=== PATIENT | female | born 1980 | race Caucasian/White ===

== ENCOUNTER → 2024-01-15 11:26 | Outpatient (REF) | payer OTHER, SELFPAY ==
[2024-01-15 12:34] LABS: % Basophils 0.3 % (0-2); % Eosinophils 3.1 % (0-6); % Immature Granulocytes 0.3 % (0-0.5); % Monocytes 4.9 % (1.7-9.3); % Neutrophils 63.4 % (42.2-75.2); Absolute Eosinophils 0.2 10^3/uL (0-0.7); Absolute Lymphocytes 1.9 10^3/uL (1.2-3.4); Absolute Monocytes 0.3 10^3/uL (0.1-0.6); Absolute Neutrophils 4.3 10^3/uL (1.4-6.5); Hematocrit 41.7 % (37.0-47.0); Hemoglobin 13.5 g/dL (12.0-16.0); Mean Corp Hgb Conc. 32.4 g/dL (33.0-37.0); Mean Corpuscular Hgb 29.6 pg (27.0-31.0); Mean Corpuscular Volume 91.4 fL (81.0-99.0); Mean Platelet Volume 10.1 fL (7.4-10.4); Nucleated Red Blood Cells % 0 %; Platelet Count 209 10^3/uL (130-400); Red Blood Cell Count 4.56 10^6/uL (4.20-5.40); Red Cell Dist. Width 13.2 % (11.5-14.5); White Blood Cell Count 6.7 10^3/uL (4.8-10.8)
[2024-01-15 12:59] LABS: ALT (SGPT) 19 U/L (0-35); AST (SGOT) 19 U/L (14-36); Alkaline Phosphatase 62 U/L (38-126); Blood Urea Nitrogen 16 mg/dl (7-17); Calcium 9.2 mg/dl (8.4-10.2); Carbon Dioxide 26 mmol/L (22-30); Chloride 106 mmol/L (98-107); Glucose 69 mg/dl (70-99); Potassium 4.3 mmol/L (3.5-5.1); Sodium 143 mmol/L (135-145); Total Bilirubin 1.2 mg/dl (0.2-1.3); Total Protein 6.7 g/dl (6.3-8.2); eGFR > 60.00
[2024-01-15 13:02] LABS: D-Dimer 0.52 ug/mlFEU (0.00-0.50)
== END ==
LOC: RAD 11:26
PROVIDERS: ATTENDING PHYSICIAN Family Medicine
DX: R06.02 Shortness of breath (principal); R00.2 Palpitations
CPT/HCPCS: 36415; 71046; 80053; 85025; 85379

== ENCOUNTER 2024-01-15 14:46 | Emergency (ER) | payer OTHER, SELFPAY ==
[2024-01-15 14:49] VITALS: BP 131/68
--- NOTE | 2024-01-15 15:59 | ED.GENMED ---
History of Present Illness
General
Chief Complaint: Abnormal Lab Value
Source: patient
Exam Limitations: none
Time Seen by Provider: 01/15/24 15:38
Nursing documentation reviewed up to this point in time: agreed with
History of Present Illness
History of Present Illness:
pt is a 43 y/o F with no chronic medical problems
here from PCP after having elevated d dimer
pt says a few days ago she had cramp in her right calf that lasted 2 days, no swelling
then pain behind her R knee but that resolved
and last night around 11 pm she got epigastric pain that radiated up to her chest and she felt nauseated
it lasted a little while but ultimately resolved
then this mornign at 7 am she woke up and had some chest tightness and SOB
that asted some time but did ease up
she went to see her PCP who sent her for labs, d dimer, cxr
pt was sent here for elevated d dimer
she has never had dvt/pe
no rf
no ocps
no fhx of cad
Past History
Past History
ED Past Medical History: Other (ovarian cyst, hidranitis)
ED Past Surgical History: Cholecystectomy
Social History
Tobacco: Smoker
Alcohol: None
Drug: Former user
Personal: Single
Living: with roommate
Review of Systems
Review of Systems
Allergies reviewed?: Yes
All Other Systems: Not applicable
Phy Exam
Physical Exam
Physical Exam:
GENERAL: Alert , in no apparent distress
EYE: pupils equal and reactive
NECK: Supple
ENT: o/p clr, mmm.
CARDIAC: Regular rate and rhythm .
LUNGS: Clear breath sounds bilaterally, no acute respiratory distress, no wheezes/rales/rhonchi
ABDOMEN: Soft, without focal tenderness, no r/g, no cvat, normal bowel sounds
NEUROLOGICAL: Alert and oriented, no focal neuro deficits
SKIN: Warm and dry, skin intact.
MUSCULOSKELETAL: No edema, well perfused. neg eneida's sign
no swelling appreciated
nontender
full painless ROM
PSYCH: Normal and appropriate interaction.
Course
Orders/Labs/Results
Orders:
Orders
01/15/24 15:56
CT Chest Pe Study Urgent
Comment:
Reason For Exam: cp, sob, elevated d dimer (labs in [facility] [place])
Test Result ONCE
Venous Doppler Lwr Ext Bilat [US Periph Venous LOWER Ext Curtis] Urgent
Comment:
Reason For Exam: leg pain, elevated d dimer
01/15/24 16:09
HCG, Urine Qualitative Screen Urgent
Date Specimen was Collected: 01/15/24
Time Specimen was Collected: 16:04
Lipase Urgent
01/15/24 17:53
Electrocardiogram (*1) Urgent
Reason for Study: Chest Pain
EKG- Treatment ONCE
01/15/24 18:50
Troponin I Urgent
Vital Signs
Initial and Last Documented VS:
Initial Vital Signs
Temp Pulse Resp BP Pulse Ox
36.8 C 85 19 131/68 95
01/15/24 14:49 01/15/24 14:49 01/15/24 14:49 01/15/24 14:49 01/15/24 14:49
Last Documented Vital Signs
Temp Pulse Resp BP Pulse Ox
36.8 C 56 17 108/55 99
01/15/24 14:49 01/15/24 19:47 01/15/24 18:45 01/15/24 19:47 01/15/24 18:45
MDM/Problems Addressed
Differential Diagnosis Includes:
GERD, dvt/pe, anxiety, nausea, stress
MDM/Problems Addressed:
43 y/o F
healthy
a few days ago had cramp R calf that took 2 days to go away then pain behind R knee
then today had some chest pain/sob syp,toms
started last night with nausea/egiastric pain, chest pain, resolved
then this morning chestp ressur eand sob
went to pcp
had noram ekg
was sent for labs and cxr
cxr clear but d dimer minimaly elevated
well appearing
normal exam
ekg no ischemia
stable vitals
no signs dvt/pe
very unlikely to be dvt/pe but with elevated dimer, will ct and us
ct shows small nodule, pt is a smoker, will have her f/u in 6 mo
no PE
dvt study neg
*Critical Care Note
Total Time (30-74mins, 75-104mins- exclusive of procedures): Not Applicable
ED Attending Note
-
Portions of this chart may have been created with voice recognition software.� Occasional wrong word or��sound alike� substitutions may have occurred due to the inherent limitations of voice recognition software.
Discharge Plan
Departure
Patient Disposition: Home (Routine Discharge)
Date of Disposition: 01/15/24
Time of Disposition: 19:43
Patient with high blood pressure during this ER visit?: No
Condition: Fair
Covid-19: Not Applicable
Discharge Problem:
Chest pain
Instructions: Chest Pain PCP Follow Up
Prescriptions:
No Action
ondansetron HCl 4 MG tablet
4 mg PO TIDPRN PRN (Reason: nausea)
dicyclomine 10 MG capsule
10 mg PO QID PRN (Reason: stomach spasms)
pantoprazole 40 MG tablet,delayed release (DR/EC)
40 mg PO DAILY Qty: 30 0RF
hydrocodone-acetaminophen 5-325 mg tablet
1 tab PO Q4H PRN (Reason: Pain) Qty: 14 0RF
Referrals:
Francoise Peterson, DO [Family Provider] - Follow up in 2-3 days
Activity Restrictions/Additional Instructions:
WE ARE NOT SURE THE CAUSE OF YOUR SYMPTOMS
THIS COULD BE REFLUX/GI SYPMTOMS
IT DOES NOT SEEM TO BE RELATED TO CARDIAC OR PULMONARY EMERGENCY
YOU DO HAVE A SMALL NODULE 4 MM IN YOUR RIGHT UPPER LUNG THAT NEEDS TO BE EVALUATED
YOU ALSO HAD SOME IRREGULAR BREAST TISSUE THAT NEEDS A MAMMOGRAM, COULD BE REGULAR DENSE TISSUE BUT SHOULD BE FOLLOWED UP
RETURN FOR ANY CONCERNS
OTHERWISE SEE YOUR DOCTOR THIS WEEK.
Interventions
Interventions:
*Risk Screen - Suicide Last Done: 01/15/24 14:49
*General Assessment Last Done: 01/15/24 14:49
*Neglect/Abuse Screening Last Done: 01/15/24 14:49
ED- Fall Risk Assessment Last Done: 01/15/24 16:14
*ED COVID-19 Vaccine History Last Done: 01/15/24 14:49
*Nursing Disposition Last Done: 01/15/24 20:26
Discharge Date and Time
Discharge Date/Time: 01/15/24 20:32
Print Language: PORTUGUESE
[2024-01-15 16:29] LABS: HCG, Urine Qualitative Screen Negative
[2024-01-15 16:40] LABS: Lipase 41 U/L (23-300)
[2024-01-15 17:46] VITALS: BP 157/145
[2024-01-15 18:24] VITALS: BP 99/44
[2024-01-15 19:00] VITALS: BP 99/76
[2024-01-15 19:36] LABS: Troponin I < 0.012 ng/ml
[2024-01-15 19:47] VITALS: BP 108/55
== END 2024-01-15 20:32 | disposition home or self-care (01) ==
LOC: EMR 14:46
PROVIDERS: Physician Assistant; EMERGENCY PHYSICIAN Emergency Medicine; FAMILY PHYSICIAN Family Medicine
DX: R07.89 Other chest pain (principal); F17.200 Nicotine dependence, unspecified, uncomplicated; Z90.49 Acquired absence of other specified parts of digestive tract
CPT/HCPCS: 99284; 36415; 71046; 71275; 80053; 81025; 83690; 84484; 85025; 85379; 93005; 93970; Q9967